=== PATIENT | male | born 1985 | race Caucasian/White ===

== ENCOUNTER 2021-10-31 13:45 | Outpatient (CLI) | payer MEDICAID, SELFPAY ==
[2021-10-31 22:18] LABS: Hepatitis B Surface Antigen* Negative (Negative)
[2021-10-31 22:29] LABS: HIV 1/2/P24 Combo Screen* Negative (Negative)
[2021-10-31 22:36] LABS: Hepatitis C Virus Antibody* Negative (Negative)
== END 2021-10-31 13:46 | disposition home or self-care (01) ==
PROVIDERS: Visit Provider Nurse Practitioner Family
DX: Z77.21 Contact with and (suspected) exposure to potentially hazardous body fluids (principal)
CPT/HCPCS: 86703; 86803; 87340